=== PATIENT | male | born 1995 | race African-American/Black ===

== ENCOUNTER 2016-09-27 16:59 | Emergency (ER) | payer OTHER ==
[2016-09-27 17:18] VITALS: RESP 16
--- NOTE | 2016-09-27 17:30 | EDPHY ---
H & P Time Seen by Provider: 09/27/16 17:27 HPI/ROS: CHIEF COMPLAINT: right ankle pain HISTORY OF PRESENT ILLNESS: 20-year-old male arrives via private vehicle complaining of acute right ankle pain after he was playing basketball, jumped up and landed on somebody's foot rolling his foot. He is unable to bear weight. He [facility] cr[facility]. Occurred shortly prior to arrival. He is unable to bear weight. Pain to the lateral and medial malleolus. No proximal tibia or fibula pain. No foot or calcaneus pain. I PHYSICAL EXAM (Prior to examination, patient consented to physical exam, hands were washed and my usual and customary physical exam procedures followed) 1) GENERAL: Well-developed, well-nourished, alert and oriented. Appears to be in no acute distress. 2) HEAD: Normocephalic 3) HEENT: Pupils equal, round, reactive to light bilaterally. 4) LUNGS: Breathing comfortably. 5) MUSCULOSKELETAL: Tender to palpation medial and lateral malleolus with soft tissue swelling of both. Soft compartments. proximal tibia and fibula nontender .5th MT nontender negative Gaytan test, compartments soft 6) SKIN: no tenting intact no ecchymosis. 7) VASCULAR: DP,PT pulses and cap refill present and brisk DIFFERENTIAL DIAGNOSIS: in no particular order including but not limited to fracture, sprain, compartment syndrome Procedure: Crutches indications for crutch use discussed with patient. Patient fitted for crutches by ER staff. Observed ambulating with crutches. I think the patient has the capacity to safely use crutches. Usual and customary crutch walking precautions provided Procedure: Splint A Brendan boot splint was applied by ER electrical maintenance technician. After application of the splint I returned and re-examined the patient. The splint was adequately immobilizing the joint and distal to the splint the patient's circulation and sensation were intact. Patient shows no signs of compartment syndrome. Was given orthopedic precautions. Smoking Status: Current every day smoker Constitutional: Initial Vital Signs Temperature (C) 36.0 C 09/27/16 17:16 Heart Rate 76 09/27/16 17:16 Respiratory Rate 16 09/27/16 17:16 Blood Pressure 125/78 H 09/27/16 17:16 O2 Sat (%) 93 09/27/16 17:16 O2 Delivery Mode Room Air Allergies/Adverse Reactions: No Known Allergies Allergy (Unverified 09/27/16 17:15) Home Medications: Medication Instructions Recorded Ibuprofen [Motrin (*)] 800 mg PO Q6 #15 tab 09/27/16 MDM/Departure - MDM Imaging Results: Imaging Impressions Ankle X-Ray 09/27/16 17:18 Impression: 1. Lateral ankle sprain. 2. Probable old avulsion injury with secondary osseous proliferative change at the level the medial malleolus. Correlation with prior studies would be helpful to assess for more specific interval change. Images reviewed by myself - Depart Disposition: Home, Routine, Self-Care Clinical Impression: Right ankle sprain Qualifiers: Encounter type: initial encounter Involved ligament of ankle: unspecified ligament Qualified Code(s): S93.401A - Sprain of unspecified ligament of right ankle, initial encounter Ankle fracture, right Qualifiers: Encounter type: initial encounter Fracture type: closed Qualified Code(s): S82.891A - Other fracture of right lower leg, initial encounter for closed fracture Condition: Good Instructions: Ankle Sprain (ED), Ankle Fracture (ED) Additional Instructions: Return to the ER immediately if you experience discoloration, have worsening pain, numbness, tingling, or any other symptoms that concern you. If you received x-rays in the emergency department today, be advised, that ligamentous , tendon, muscular, and other non-bony injury cannot be fully ruled out. Try to keep your affected extremity elevated above the level of your chest, and keep cold packs on the affected area, for the next 48 hours. Prescriptions: Ibuprofen [Motrin (*)] 800 mg PO Q6 #15 tab Referrals: Deshaun Reardon MD [Medical Doctor] - 2-3 days, call for appt.
[2016-09-27 18:03] VITALS: BP 118/74; PULSE 70; TEMP 98.4; O2SAT 94
== END 2016-09-27 18:02 | disposition home or self-care (01) ==
DX: S82.891A Other fracture of right lower leg, initial encounter for closed fracture (principal); S93.401A Sprain of unspecified ligament of right ankle, initial encounter; F17.200 Nicotine dependence, unspecified, uncomplicated; W51.XXXA Accidental striking against or bumped into by another person, initial encounter; Y99.8 Other external cause status; Y93.67 Activity, basketball

== ENCOUNTER 2017-12-29 04:03 | Emergency (ER) | payer OTHER ==
[2017-12-29 04:18] VITALS: BP 106/81
--- NOTE | 2017-12-29 05:36 | EDPHY ---
H & P Stated Complaint: ETOH, fall, lip lac Time Seen by Provider: 12/29/17 04:05 HPI/ROS: HPI: The patient presents with facial trauma after a fall which occurred just prior to arrival. The patient was walking outside after a night of drinking alcohol with friends. He believes he tripped and fell though is not exactly sure and landed on his face. He denies any headache, nausea, vomiting, vision change, weakness in his arms or legs. He has sustained lacerations to his face. He has no difficulty breathing through his nose. REVIEW OF SYSTEMS 10 systems were reviewed and negative with the exception of the elements mentioned in the history of present illness. PMHx: Healthy, from [place] originally TRAUMA PHYSICAL General Appearance: Alert, no distress Head: Abrasion to left forehead, nose Eyes: Pupils equal, round, reactive ENT, Mouth: No hemotypanium, both central incisors have fracture, teeth are not loose, no septal hematoma Neck: Non- tender, trachea midline Respiratory: No chest wall tenderness, no subcutaneous air, lungs clear bilaterally Cardiovascular: Regular rate and rhythm Abdomen: Abdomen is soft and non-tender, pelvis stable Skin: 3 cm laceration on the proximal left side of his philtrum, non gaping Back: No midline T/L/S pain Extremities: Non-tender, full range of motion Neurological: A&Ox3, GCS=15,normal motor function with 5/5 strength in all 4 extremities, normal sensory exam Source: Patient, EMS Exam Limitations: Intoxication - Personal History Current Tetanus/Diphtheria Vaccine: Yes Current Tetanus Diphtheria and Acellular Pertussis (TDAP): Yes - Medical/Surgical History Hx Asthma: Yes Hx Chronic Respiratory Disease: No Hx Diabetes: No Hx Cardiac Disease: No Hx Renal Disease: No Hx Cirrhosis: No Hx Alcoholism: No Hx HIV/AIDS: No Hx Splenectomy or Spleen Trauma: No Other PMH: denies - Social History Smoking Status: Former smoker Constitutional: Initial Vital Signs Temperature (C) 36.6 C 12/29/17 04:09 Heart Rate 67 12/29/17 04:09 Respiratory Rate 16 12/29/17 04:09 Blood Pressure 106/81 H 12/29/17 04:09 O2 Sat (%) 100 12/29/17 04:09 O2 Delivery Mode Room Air Allergies/Adverse Reactions: No Known Allergies Allergy (Unverified 09/27/16 17:15) Home Medications: Medication Instructions Recorded Ibuprofen [Motrin (*)] 800 mg PO Q6 #15 tab 09/27/16 Medical Decision Making Procedures: LACERATION REPAIR Procedure: Laceration repair. Verbal consent was obtained from the patient. The linear 3 cm laceration on the left superior philtrum was anesthetized using lidocaine with epinephrine. The wound was scrubbed, draped and explored to its base with a gloved finger. There were no deep structures involved. No tendon injury was identified. . The wound was repaired with a combination of simple interrupted and horizontal mattress sutures of 5-0 nylon. The wound repair was complex. The procedure was performed by myself. Differential Diagnosis: 22-year-old man with no past medical history presents after a fall, landing on his face in the setting of alcohol intoxication, brought in by ambulance. On exam, he does have signs of facial trauma without any facial bone tenderness or edema. He has sustained a laceration just below his left nose which will require repair. He believes his tetanus vaccine is up-to-date. The patient was observed for about 2 hr in the ED. He was eventually more sober and able to walk with a steady gait. I considered intracranial hemorrhage , however he does not have any headache, vomiting, vision change, behavioral change, neurologic deficit thus I have not ordered a CT scan. [facility] He was given instructions to follow up with a dentist for his tooth fractures. Departure - Departure Disposition: Home, Routine, Self-Care Clinical Impression: Alcohol intoxication delirium Fall Qualifiers: Encounter type: initial encounter Qualified Code(s): W19.XXXA - Unspecified fall, initial encounter Lip laceration Qualifiers: Encounter type: initial encounter Qualified Code(s): S01.511A - Laceration without foreign body of lip, initial encounter Tooth fractures Qualifiers: Encounter type: initial encounter Fracture type: closed Qualified Code(s): S02.5XXA - Fracture of tooth (traumatic), initial encounter for closed fracture Condition: Good Instructions: Care For Your Stitches (ED), At-Risk Alcohol Use (ED), Facial Laceration (ED) Additional Instructions: I recommend use antibiotic ointment on the wound and do not get it wet for the next 48 hr. After that, it is okay to get it wet in the shower the bath. Then apply antibiotic ointment twice a day. The stitches should be removed in 5 days. You can come to the emergency department for this or go to [facility]. For the next 6 months, we recommend you use sunscreen on the wound to allow for minimal scarring. If you're unhappy with the way the wound is healing please contact [facility] so you can be referred to a plastic surgeon. Several of your teeth or chipped. You need to follow up with your dentist for this in the next week. Please have a soft diet until then. Referrals: [facility] ,. [Ed Groups for Call Sched] - As per Instructions
== END 2017-12-29 06:21 | disposition home or self-care (01) ==
LOC: EDUNIT#
PROC: 0CQ0XZZ Repair Upper Lip, External Approach (ICD-10-PCS; principal; 2017-12-29)
DX: S01.511A Laceration without foreign body of lip, initial encounter (principal); W01.0XXA Fall on same level from slipping, tripping and stumbling without subsequent striking against object, initial encounter; Y99.8 Other external cause status; R40.2412 Glasgow coma scale score 13-15, at arrival to emergency department; F10.921 Alcohol use, unspecified with intoxication delirium